=== PATIENT | female | born 1960 | race Caucasian/White ===

== ENCOUNTER 2024-02-16 11:37 | Emergency (ER) | payer MEDICARE, OTHER ==
[2024-02-16 12:59] LABS: BASOPHILS PERCENT AUTO 0.5 % (0.2-1.5); EOSINOPHILS PERCENT AUTO 0.9 % (0.6-8.1); HEMATOCRIT 23.6 % (34.2-48.2); HEMOGLOBIN 8.1 g/dL (11.4-15.5); LYMPHOCYTES ABSOLUTE AUTO 0.8 x10-3/uL (1.0-4.4); LYMPHOCYTES PERCENT AUTO 19.8 % (18.4-52.1); MEAN CORPUSCULAR HEMOGLOBIN 31.1 pg (23.9-33.9); MEAN CORPUSCULAR HGB CONC 34.3 g/dL (31.9-34.8); MEAN CORPUSCULAR VOLUME 90.6 fL (76.7-100.5); MEAN PLATELET VOLUME 7.9 fL (7.1-12.4); MONOCYTES ABSOLUTE AUTO 0.5 x10-3/uL (0.3-1.0); MONOCYTES PERCENT AUTO 13.6 % (4.4-15.7); NEUTROPHILS ABSOLUTE AUTO 2.5 x10-3/uL (1.5-6.3); NEUTROPHILS PERCENT AUTO 65.2 % (30.8-76.2); PLATELET COUNT,PLT 228 x10(3)uL (151-488); RED CELL DISTRIBUTION WIDTH 22.5 % (12.3-16.5); WHITE BLOOD CELL COUNT,WBC 3.9 x10-3/uL (3.0-10.3)
[2024-02-16 13:00] LABS: BLOOD UREA NITROGEN,BUN 29 mg/dL (7-18); BUN/CREATININE RATIO 22.3 (9-20); CALCIUM 8.9 mg/dL (8.6-10.2); CARBON DIOXIDE,CO2 22 mmol/L (21-32); CHLORIDE,CL 102 mmol/L (100-110); CREATININE 1.3 mg/dL (0.55-1.02); EST CRCL DRUG DOSING (CG) 38.82 mL/min; ESTIMATED GFR 46 mL/min (>60); GLUCOSE RANDOM 115 mg/dL (80-116); POTASSIUM,K 4.6 mmol/L (3.5-5.3); SODIUM,NA 138 mmol/L (135-145)
[2024-02-16 13:06] LABS: A/G RATIO 0.9; ALANINE AMINOTRANSFERASE,ALT 33 U/L (12-36); ALBUMIN 3.4 g/dL (3.2-4.6); ALKALINE PHOSPHATASE 127 IU/L (56-112); ASPARTATE AMNIOTRANSFERASE,AST 8 IU/L (5-25); BILIRUBIN TOTAL 0.3 mg/dL (0.1-1.3); PROTEIN TOTAL,TP 7.1 g/dL (6.0-8.0)
[2024-02-16 13:09] LABS: C-REACTIVE PROTEIN 0.71 mg/dL (<0.50)
[2024-02-16 13:21] LABS: RED BLOOD CELL COUNT 2.61 x10(6)uL (3.60-5.20)
[2024-02-16] MEDS: Iopamidol 755 Mg/ML 100 ML Bottle IV SCH (13:35)
[2024-02-16 14:35] LABS: BILIRUBIN,URINE NEGATIVE (NEGATIVE); GLUCOSE,URINE NORMAL (NORMAL); KETONES,URINE NEGATIVE (NEGATIVE); LEUKOCYTE ESTERASE,URINE NEGATIVE (NEGATIVE); NITRITE,URINE NEGATIVE (NEGATIVE); OCCULT BLOOD,URINE NEGATIVE (NEGATIVE); PROTEIN,URINE NEGATIVE (NEGATIVE); UROBILINOGEN,URINE NORMAL (NEGATIVE)
[2024-02-16 14:48] LABS: APPEARANCE,URINE CLEAR (CLEAR); BACTERIA,URINE RARE (NS); COLOR,URINE YELLOW (YELLOW); RBC,URINE NOT SEEN (0-5); SQUAMOUS EPITHELIAL CELLS,UR RARE (NS,R,O); WBC,URINE 0-5 (0-5)
[2024-02-16 16:22] LABS: INFLUENZA A NAA NEGATIVE (NEGATIVE); INFLUENZA B NAA NEGATIVE (NEGATIVE); RESPIRATORY SYNCYTIAL VIR NAA NEGATIVE (NEGATIVE)
[2024-02-16 16:26] LABS: CORONAVIRUS COVID-19 NAA NEGATIVE (NEGATIVE)
[2024-02-16] MEDS: Enoxaparin 120 MG/0.8 ML Syringe SUBCUT ONE (16:52)
== END 2024-02-16 16:57 | disposition home or self-care (01) ==
LOC: FB.ED 11:37
DX: I26.99 Other pulmonary embolism without acute cor pulmonale (principal); Z91.048 Other nonmedicinal substance allergy status
CPT/HCPCS: 0241U; 36415; 71275; 80053; 81001; 83605; 83735; 84484; 85025; 85379; 86140; 87040; 93005; 96372; 99285; J1650; Q9967; 99284